=== PATIENT | female | born 1965 | race African-American/Black ===

== ENCOUNTER 2017-11-09 18:30 | Emergency (ER) | payer OTHER, SELFPAY ==
--- NOTE | 2017-11-09 21:24 | RAD ---
RIGHT KNEE 4 VIEWS: Date: 11/09/17 HISTORY: Pain. COMPARISON: 04/20/14. FINDINGS: Mild tricompartmental degenerative change. No joint effusion. No fracture. IMPRESSION: No fracture. No significant degenerative change. POS: [facility]
[2017-11-09] MEDS ORDERED: Ketorolac Tromethamine 30 MG/ML VIAL ONE (21:40)
== END 2017-11-09 21:57 | disposition home or self-care (01) ==
LOC: ERS 18:30
DX: M25.561 Pain in right knee (principal); K21.9 Gastro-esophageal reflux disease without esophagitis; E78.5 Hyperlipidemia, unspecified; E11.9 Type 2 diabetes mellitus without complications; I10 Essential (primary) hypertension; E03.9 Hypothyroidism, unspecified; F32.9 Major depressive disorder, single episode, unspecified
CPT/HCPCS: 96372; J1885

== ENCOUNTER 2018-05-16 08:24 | Observation (INO) | payer OTHER, SELFPAY ==
[2018-05-16 08:52] LABS: #Eosinphils 0.2 thou/uL (0.0-0.7); #Lymphocytes 2.4 thou/uL (1.20-3.40); #Monocytes 0.7 thou/uL (0.11-0.59); %Basophils 0.3 % (0.0-1.0); %Eosinophils 3.3 % (0.0-10.0); %Lymphocytes 38.4 % (21.0-51.0); %Monocytes 10.7 % (0.0-10.0); %Neutrophils 47.4 % (42.0-75.0); Mean Corpuscular HGB CONC 32.7 g/dL (32.0-36.0); Mean Corpuscular Hemoglobin 25.8 pg (27.0-31.0); Mean Corpuscular Volume 78.7 fL (78.0-98.0); Mean Platelet Volume 7.8 fL (7.4-10.4); Platelet Count 308 thou/uL (130-400); RBC Distribution Width 13.4 % (11.5-14.5); Red Blood Cell (RBC) Count 5.04 mill/uL (4.20-5.40); White Blood Cell (WBC) Count 6.3 thou/uL (4.8-10.8)
[2018-05-16] MEDS ORDERED: Nitroglycerin 0.4 MG TAB (25 Tab Bottle) ONE (08:57)
[2018-05-16 09:12] LABS: ALT (SGPT) Less than 7 U/L (8-55); AST (SGOT) 15 U/L (5-34); Alkaline Phosphatase 94 U/L (40-150); Anion Gap 18 mmol/L (10-20); BUN (Urea Nitrogen) 8 mg/dL (9.8-20.1); Bilirubin, Total 0.4 mg/dL (0.2-1.2); CK (CPK) 139 U/L (29-168); Calc. Creatinine Clearance 0 mL/min (70-130); Carbon Dioxide 19 mmol/L (22-29); Chloride 104 mmol/L (98-107); Estimated GFR-MDRD Greater than 90; Globulin 4.8 g/dL (2.4-3.5); Glucose 176 mg/dL (70-105); Potassium 3.6 mmol/L (3.5-5.1); Protein, Total 8.8 g/dL (6.0-8.3); Sodium 137 mmol/L (136-145)
[2018-05-16 09:26] LABS: CKMB 0.9 ng/mL (0-6.6); Troponin I Less than 0.010 ng/mL (< 0.028)
[2018-05-16] MEDS ORDERED: Nitroglycerin 0.4 MG TAB (25 Tab Bottle) PO PRN (09:56)
[2018-05-16] MEDS ORDERED: Benzonatate 100 MG CAP PO PRN (09:56)
[2018-05-16] MEDS ORDERED: Ondansetron PF 4 MG/2 ML Vial IVP PRN (09:56)
[2018-05-16] MEDS ORDERED: Diabetic Tussin 200 MG/10 ML UDCUP PO PRN (09:56)
[2018-05-16] MEDS ORDERED: Lorazepam 1 MG TAB PO PRN (09:56)
[2018-05-16] MEDS ORDERED: cloNIDine 0.1 MG TAB PO PRN (09:56)
[2018-05-16] MEDS ORDERED: Senokot 8.6 MG TAB PO PRN (09:56)
[2018-05-16] MEDS ORDERED: Loratadine 10 MG TAB PO PRN (09:56)
[2018-05-16] MEDS ORDERED: Nitroglycerin 0.4 MG TAB (25 Tab Bottle) SL PRN (09:56)
[2018-05-16] MEDS ORDERED: hydrALAZINE 20 MG/ML VIAL SLOW IVP PRN (09:56)
[2018-05-16] MEDS ORDERED: Bisacodyl 5 MG TAB PO PRN (09:56)
[2018-05-16] MEDS ORDERED: Dextrose 50% Abboject 50 ML SYRINGE SLOW IVP PRN (09:59)
[2018-05-16] MEDS ORDERED: Dextrose 5% in Water 1,000 ML IV PRN (09:59)
[2018-05-16] MEDS ORDERED: HumaLOG 300 UNITS/3 ML VIAL SC PRN ×2 (09:59)
[2018-05-16] MEDS ORDERED: Acetaminophen 325 MG TAB ONE (10:04)
--- NOTE | 2018-05-16 10:23 | RAD ---
CHEST 1 VIEW: Date: 05/16/18 HISTORY: Chest pain. COMPARISON: Chest radiograph dated 05/09/17. FINDINGS: Heart size upper limits of normal. There is right basilar air space opacity. No pneumothorax. No acut e osseous abnormality. IMPRESSION: Right lower lobe air space opacity concerning for developing infection. Atelectasis is also a possibi lity. POS: [facility]
[2018-05-16 10:24] LABS: Cardiac Risk 2.4 (Less than 4.5)
[2018-05-16 11:33] VITALS: BMI 44.7
[2018-05-16] MEDS: traMADol HCl 50 MG TAB PO PRN (17:41)
[2018-05-16 18:50] LABS: Troponin I Less than 0.010 ng/mL (< 0.028)
--- NOTE | 2018-05-16 19:16 | HP ---
DATE OF ADMISSION: 05/16/2018 PRIMARY CARE PHYSICIAN: [facility]. CHIEF COMPLAINT: Chest pain. HISTORY OF PRESENTING ILLNESS: Ms. Chambers is a 52-year-old obese female with past medical history of diabetes mellitus, hypertension, dyslipidemia, and GERD, who presented to the emergency room with the above-mentioned complaint. History is mainly obtained by the patient herself, electronic medical records have been reviewed. The patient had a workup done with Cardiolite stress test in 11/2016, w hich was normal. She presented to the ER with complaints of sharp chest pain. She does report that the pain woke her up last night when she was trying to go to the bathroom. She reports it as a very sharp pain, lastin g only a few seconds, then she was able to fall back asleep. This morning again when she had similar pain, but with less intensity, located in the left anterior chest. It was not associated with any s weating, nausea, palpitations or shortness of breath. She denies any recent illnesses. She reports that her chest pain was from left to the right side of the chest. She was not really checking her bl ood pressure or blood sugars at home, but is compliant with her medications. Upon presentation to the ER, she was hemodynamically stable with the blood pressure of 144/92, pulse of 96, saturating 100% on room air, respirations 21, temperature 97.4. Initial workup included a 12- lead EKG, which showed normal sinus rhythm with 84 beats per minute, similar to old EKG. Cardiac enz ymes were done and were negative. She was given nitroglycerin and aspirin, which helped with her jose n somewhat. Chest x-ray was done, which was unremarkable. She is now being admitted for further wor kup and rule out acute coronary syndrome. PAST MEDICAL HISTORY: 1. Hypertension. 2. Dyslipidemia. 3. Morbid obesity with a BMI of 44. 4. Diabetes mellitus. 5. Hypothyroidism. 6. GERD. PAST SURGICAL HISTORY: 1. Thyroidectomy. 2. Bladder cancer. 3. Removal of kidney stone. ALLERGIES: PENICILLIN. SOCIAL HISTORY: She is a nonsmoker, nondrinker. She is and has 4 children. FAMILY HISTORY: Her brother had history of cardiac disease requiring stents and pacemaker. CURRENT MEDICATIONS: As follows: Metformin 500 mg p.o. b.i.d., Prozac 40 mg daily, ranitidine 150 m g p.o. b.i.d., atorvastatin 40 mg daily, amlodipine 10 mg daily, levothyroxine 175 mcg daily, aspirin 81 mg daily. REVIEW OF SYSTEMS: A 12-point review of systems was done. It is negative except for those mentioned in the history and physical. LABORATORY DATA AND IMAGING: CBC is unremarkable. D-dimer less than 0.27. Serum chemistry shows bi carbonate of 19, blood sugar 176, troponin has been trended and it is less than 0.010. Lipid panel w ithin normal limit. BNP normal. Chest x-ray by my review is negative for any pleural effusion, irene a or infiltrate. A 12-lead EKG by my review shows normal sinus rhythm. It is negative for any acute ST or T-wave changes. PHYSICAL EXAMINATION: VITAL SIGNS: Most recent vital signs, temperature 97.7, pulse of 67, respirations 16, saturating 96% on room air, blood pressure 130/66. GENERAL: No acute distress, awake, alert, oriented x3, very pleasant. HEENT: Mucous membrane is moist and pink. No oropharyngeal exudate or erythema. Head is normocepha lic, atraumatic. Pupils are equal, reactive to light and accommodation. Extraocular movement intact . NECK: Supple without any lymphadenopathy, JVD or bruit. CHEST: Clear to auscultation without any wheezing, rales or rhonchi. She is tender to palpation in the anterior chest, left side and the right side as well. ABDOMEN: Obese, soft, nontender, nondistended with positive bowel sounds. EXTREMITIES: Free of any cyanosis, clubbing, or edema. NEUROLOGIC: Nonfocal. SKIN: Free of any rashes or bruises. I feel warm and dry to touch. PSYCHIATRIC: Normal affect. IMPRESSION AND PLAN: 1. Chest pain, most likely noncardiac as evidenced by reproducible tenderness and normal cardiac enz ymes and 12-lead EKG and cardiac stress test that was negative early last year. The patient does hav e a significant amount of risk factors, so we will go ahead and repeat the stress test for now and ad zo her on telemetry unit and continue to trend serial cardiac enzymes. Her aspirin dose will be inc reased to 325 mg for now and we will continue the Lipitor at this time. 2. Diabetes mellitus. Restart her home medication and add insulin sliding scale for further blood s ugar control. Accu-Cheks a.c. and at bedtime. 3. Hypertension, currently controlled. Resume her home medications of amlodipine at this time. 4. Dyslipidemia. Restart Lipitor. 5. Hypothyroidism. Restart Synthroid. 6. Add deep venous thrombosis and gastrointestinal prophylaxis. DISPOSITION: Ms. Chambers is currently being admitted to the hospital to rule out acute coronary syn drome. Further management will depend upon her clinical course.
[2018-05-16] MEDS: Famotidine 20 MG TAB PO SCH (20:48)
[2018-05-16] MEDS ORDERED: Atorvastatin Calcium 40 MG TAB PO SCH (21:00)
[2018-05-16 22:30] LABS: Troponin I Less than 0.010 ng/mL (< 0.028)
[2018-05-17] MEDS: traMADol HCl 50 MG TAB PO PRN ×2 (04:10→11:38)
[2018-05-17] MEDS ORDERED: Levothyroxine 175 MCG TAB PO SCH (06:00)
[2018-05-17] MEDS ORDERED: metFORMIN 500 MG TAB PO SCH (08:00)
[2018-05-17] MEDS ORDERED: Aspirin 325 MG TAB PO SCH ×2 (08:00→09:00)
[2018-05-17 08:19] VITALS: TEMP 97.6
[2018-05-17] MEDS ORDERED: FLUoxetine HCl 20 MG CAP PO SCH (09:00)
[2018-05-17] MEDS ORDERED: Aspirin 81 mg Enteric Coated Tablet PO SCH (09:00)
[2018-05-17] MEDS ORDERED: Amlodipine 10 MG TAB PO SCH (09:00)
[2018-05-17] MEDS: Famotidine 20 MG TAB PO SCH (10:38)
[2018-05-17 10:41] VITALS: BP 132/60
--- NOTE | 2018-05-17 12:23 | NM ---
NUCLEAR MEDICINE CARDIAC MYOCARDIAL PERFUSION SPECT EJECTION FRACTION STUDY WALL MOTION CINE: Date: 05/17/18 HISTORY: 52-year-old female with Type 2 diabetes mellitus, hypertension, hyperlipidemia, and family history of coronary artery disease, presents with chest pain. TECHNIQUE: Number of days: 2 Rest study: Tc99m sestamibi (Cardiolite) dose: 30.8 mCi Pharmacologic stress: adenosine dose: 72.2 mg Stress study: Tc99m sestamibi (Cardiolite) dose: 30.0 mCi FINDINGS: CARDIAC (MYOCARDIAL PERFUSION) SPECT There are no reversible myocardial perfusion defects. EJECTION FRACTION STUDY EF = 54% WALL MOTION CINE No gross focal wall motion abnormality identified. IMPRESSION: No evidence of reversible ischemia. MARY Daniel POS: [facility]
--- NOTE | 2018-05-17 13:17 | DIS ---
DATE OF ADMISSION: 05/16/2018 DATE OF DISCHARGE: 05/17/2018 CONDITION AT THE TIME OF DISCHARGE: Stable and improved. DISCHARGE DIAGNOSES: 1. Chest pain, atypical, noncardiac, acute coronary syndrome rule out. 2. Hypertension. 3. Dyslipidemia. 4. Morbid obesity. 5. Diabetes mellitus. 6. Hypothyroidism. 7. Gastroesophageal reflux disease. DISCHARGE DISPOSITION: Home. PRIMARY CARE PHYSICIAN: [facility]. DISCHARGE MEDICATIONS: Remain the same as admission medication. Please see admission history and ph ysical for further detail. No changes were made. PROCEDURES DONE IN HOSPITAL: Nuclear medicine stress test, which is unremarkable. There was no evid ence of ischemia or infarction. HISTORY OF PRESENT ILLNESS: Ms. Chambers is a 52-year-old female with history of diabetes, hypertens ion, dyslipidemia, and family history of coronary artery disease who presented to the emergency room with complaints of chest pain. She was admitted for ACS rule out. Cardiac enzymes and EKG were unre markable at the time of presentation. Chest x-ray was within normal limit. She was hemodynamically stable. Please see admission history and physical for further detail. HOSPITAL COURSE: The patient remained asymptomatic throughout the rest of her hospitalization and di d not have any answer and had stable vital signs. Serial cardiac enzymes were trended and were negat kane. Troponin less than 0.010. A lipid panel was checked and was within normal limits. She was res tarted on her home medications except that for the time being, aspirin was increased to 325. She underwent a nuclear medicine stress test which was negative for any reversible or fixed defect. EF estimated at 53%. It was done in 2 steps because of her obesity. At this time, she is being discharged from the hospital as ACS has been ruled out. Chest pain is non cardiac and resolved with some tramadol that was given in the hospital. She was seen and examined prior to discharge. PHYSICAL EXAMINATION: VITAL SIGNS: This morning, temperature 97.2, pulse of 70, respirations 15, saturating 98% on room ai r, blood pressure 132/60. GENERAL: No acute distress, awake, alert, oriented x3. CHEST: Clear to auscultation without any wheezing, rales or rhonchi. Rhythm is regular without any murmur, rubs or gallops. She is instructed to follow with primary care physician in 7-10 days.
--- NOTE | 2018-05-29 09:41 | STRESS ---
Acquisition Time: 2018-05-17 08:20:16 Total Exercise Time: 00:04:00 Test Indications: CHEST PAIN Medications: Protocol: ADENOSINE Max HR: 105 BPM 62% of Pred: 169 BPM Max BP: 152/058 mmHG Max Work Load: 1.0 METS RESTING ECG: NORMAL SINUS RHYTHM WITH LEFT AXIS DEVIATION AND RARE PACs SYMPTOMS: DYSPNEA ON EXERTION NORMAL BP RESPONSE ECTOPY: NONE ECG STRESS: NO SIGNIFICANT CHANGES INTERPRETATION: AWAIT NUCLEAR IMAGES FOR DEFINITIVE DIAGNOSIS Confirmed by MIRZA SLAUGHTER ([id number]), television news video editor JULITA DURAND ([id number]) on 05/29/2018 9:41:10 AM Referred By: MD Zana ANGULO Confirmed By:MIRZA SLAUGHTER
--- NOTE | 2018-05-30 12:02 | EKG ---
Test Reason : Blood Pressure : / mmHG Vent. Rate : 084 BPM Atrial Rate : 084 BPM P-R Int : 148 ms QRS Dur : 094 ms QT Int : 404 ms P-R-T Axes : 043 -33 049 degrees QTc Int : 477 ms Normal sinus rhythm Left axis deviation Voltage criteria for left ventricular hypertrophy Abnormal ECG Confirmed by CARLY VILLAREAL ([id number]), editor city RENE HOGUE ([id number]) on 05/30/2018 12:02:17 PM Referred By: Confirmed By:CARLY VILLAREAL
== END 2018-05-17 13:47 | disposition home or self-care (01) ==
LOC: ERS 08:24 → 2SW 09:54
PROVIDERS: ADMIT Internal Medicine; ATTEND Internal Medicine
DX: R07.89 Other chest pain (principal); I10 Essential (primary) hypertension; E78.5 Hyperlipidemia, unspecified; E66.01 Morbid (severe) obesity due to excess calories; E11.9 Type 2 diabetes mellitus without complications; E89.0 Postprocedural hypothyroidism; K21.9 Gastro-esophageal reflux disease without esophagitis; Z79.899 Other long term (current) drug therapy; Z79.82 Long term (current) use of aspirin; Z68.41 Body mass index [BMI] 40.0-44.9, adult; Z88.0 Allergy status to penicillin; Z79.84 Long term (current) use of oral hypoglycemic drugs
CPT/HCPCS: 36415; 36416; 71045; 78452; 80053; 80061; 82553; 83880; 84484; 85025; 85379; 90471; 90732; 93005; 93017; 94760; A9500; G0009; G0378; J0153

== ENCOUNTER 2018-08-08 15:19 | Emergency (ER) | payer SELFPAY ==
[~2018-08-08 15:19] MED LIST: ISOVUE-370 76%-LOCM 1 ML ONE
[2018-08-08 16:12] LABS: #Basophils 0.1 thou/uL (0.0-0.2); #Eosinphils 0.1 thou/uL (0.0-0.7); #Lymphocytes 1.5 thou/uL (1.20-3.40); #Monocytes 0.8 thou/uL (0.11-0.59); #Neutrophils 4.2 thou/uL (1.40-6.50); %Basophils 1.6 % (0.0-1.0); %Eosinophils 1.2 % (0.0-10.0); %Lymphocytes 21.9 % (21.0-51.0); %Monocytes 12.1 % (0.0-10.0); %Neutrophils 63.1 % (42.0-75.0); Hemoglobin 12.2 g/dL (12.0-16.0); Mean Corpuscular HGB CONC 32.2 g/dL (32.0-36.0); Mean Corpuscular Hemoglobin 25.3 pg (27.0-31.0); Mean Corpuscular Volume 78.7 fL (78.0-98.0); Mean Platelet Volume 8.6 fL (7.4-10.4); Platelet Count 312 thou/uL (130-400); RBC Distribution Width 13.4 % (11.5-14.5); Red Blood Cell (RBC) Count 4.83 mill/uL (4.20-5.40); White Blood Cell (WBC) Count 6.7 thou/uL (4.8-10.8)
[2018-08-08 16:31] LABS: Anion Gap 13 mmol/L (10-20); Bilirubin, Total 0.4 mg/dL (0.2-1.2); Calcium 9.1 mg/dL (7.8-10.44); Carbon Dioxide 23 mmol/L (22-29); Chloride 107 mmol/L (98-107); Potassium 4.1 mmol/L (3.5-5.1); Protein, Total 8.2 g/dL (6.0-8.3); Sodium 139 mmol/L (136-145)
[2018-08-08 16:32] LABS: AST (SGOT) 15 U/L (5-34)
--- NOTE | 2018-08-08 16:42 | CT ---
CT ABDOMEN AND PELVIS WITH IV CONTRAST 08/08/18 HISTORY: Abdomen pain and back pain. COMPARISON: 01/26/16. FINDINGS: The lung bases are clear. Gallbladder is surgically absent. The liver, spleen, kidneys, adrenal gland s, and pancreas have a normal CT appearance. No enlarged lymph nodes or free fluid. Urinary bladder i s decompressed. Lack of oral contrast limits evaluation of the bowel. No evidence of obstruction or inflammation. IMPRESSION: No significant abnormalities are demonstrated. POS: [facility]
[2018-08-08] MEDS ORDERED: Dicyclomine 20 MG TAB ONE (16:47)
[2018-08-08] MEDS ORDERED: Ketorolac Tromethamine 30 MG/ML VIAL ONE (16:47)
[2018-08-08 16:50] LABS: ALT (SGPT) Less than 7 U/L (8-55); Albumin 3.8 g/dL (3.5-5.0); Alkaline Phosphatase 85 U/L (40-150); BUN (Urea Nitrogen) 9 mg/dL (9.8-20.1); Calc. Creatinine Clearance 0 mL/min (70-130); Estimated GFR-MDRD Greater than 90; Globulin 4.7 g/dL (2.4-3.5); Glucose 112 mg/dL (70-105)
[2018-08-08] MEDS ORDERED: Methocarbamol 500 MG TAB PO SCH (17:00)
[2018-08-08] MEDS ORDERED: Metoclopramide HCl 10 MG/2 ML VIAL ONE (18:01)
[2018-08-08] MEDS ORDERED: diphenhydrAMINE 25 MG CAP ONE ×2 (18:01→18:05)
[2018-08-08 18:04] LABS: Bilirubin Negative (Negative); Blood, Urine Negative (Negative); Clarity CLEAR (Clear); Glucose, Urine (Dipstick) Negative (Negative); Leukocyte Negative (Negative); Nitrite Negative (Negative); Protein, Urine (Dipstick) Negative (Neg-Trace)
[2018-08-08 18:07] LABS: Specific Gravity, Urine Greater than 1.060 (1.002-1.036)
[2018-08-08] MEDS ORDERED: traMADol HCl 50 MG TAB ONE (19:25)
--- NOTE | 2018-08-24 15:48 | EKG ---
Test Reason : Blood Pressure : / mmHG Vent. Rate : 089 BPM Atrial Rate : 089 BPM P-R Int : 142 ms QRS Dur : 086 ms QT Int : 388 ms P-R-T Axes : 041 -31 038 degrees QTc Int : 472 ms Sinus rhythm with Premature atrial complexes Left axis deviation Voltage criteria for left ventricular hypertrophy Abnormal ECG Confirmed by CARLY VILLAREAL ([id number]), graphic editor MERRILL LORA ([id number]) on 08/24/2018 3:48:33 PM Referred By: Confirmed By:CARLY VILLAREAL
== END 2018-08-08 19:31 | disposition home or self-care (01) ==
LOC: ERS 15:19
DX: M54.6 Pain in thoracic spine (principal); K21.9 Gastro-esophageal reflux disease without esophagitis; E78.5 Hyperlipidemia, unspecified; E11.9 Type 2 diabetes mellitus without complications; I10 Essential (primary) hypertension; E03.9 Hypothyroidism, unspecified; F32.9 Major depressive disorder, single episode, unspecified; Z87.442 Personal history of urinary calculi; Z79.82 Long term (current) use of aspirin; Z79.899 Other long term (current) drug therapy
CPT/HCPCS: 36415; 74177; 80053; 81003; 85025; 93005; 96361; 96365; 96375; J1885; J2765

== ENCOUNTER 2018-11-04 19:10 | Emergency (ER) | payer SELFPAY ==
--- NOTE | 2018-11-04 21:37 | RAD ---
FOUR VIEWS OF THE RIGHT KNEE: 11/04/18 COMPARISON: 11/09/17. HISTORY: Fall, trauma, pain. FINDINGS: There is moderate degenerative change involving the medial compartment with joint space narrowing and osteophyte formation. There is no displaced fracture or evidence of dislocation. There is patellofem oral joint space narrowing and there is enthesophyte formation at the insertion of the quadriceps ten don. IMPRESSION: Degenerative joint disease with no displaced fracture or dislocation seen. POS: [facility]
== END 2018-11-04 22:01 | disposition home or self-care (01) ==
LOC: ERS 19:10
DX: S80.01XA Contusion of right knee, initial encounter (principal); K21.9 Gastro-esophageal reflux disease without esophagitis; E78.5 Hyperlipidemia, unspecified; E11.9 Type 2 diabetes mellitus without complications; E03.9 Hypothyroidism, unspecified; F41.9 Anxiety disorder, unspecified; F32.9 Major depressive disorder, single episode, unspecified; Z79.82 Long term (current) use of aspirin; Z79.891 Long term (current) use of opiate analgesic; Z79.899 Other long term (current) drug therapy; W01.0XXA Fall on same level from slipping, tripping and stumbling without subsequent striking against object, initial encounter

== ENCOUNTER 2019-04-01 18:28 | Emergency (ER) | payer SELFPAY ==
[2019-04-01] MEDS ORDERED: Meclizine HCl 25 MG TAB ONE (19:14)
[2019-04-01 19:27] LABS: #Basophils 0.1 thou/uL (0.0-0.2); #Eosinphils 0.2 thou/uL (0.0-0.7); #Lymphocytes 2.9 thou/uL (1.20-3.40); #Monocytes 0.8 thou/uL (0.11-0.59); #Neutrophils 5.1 thou/uL (1.40-6.50); %Basophils 0.9 % (0.0-1.0); %Eosinophils 1.8 % (0.0-10.0); %Monocytes 8.4 % (0.0-10.0); %Neutrophils 56.9 % (42.0-75.0); Hemoglobin 12.5 g/dL (12.0-16.0); Mean Corpuscular HGB CONC 32.5 g/dL (32.0-36.0); Mean Corpuscular Hemoglobin 25.5 pg (27.0-31.0); Mean Corpuscular Volume 78.5 fL (78.0-98.0); Mean Platelet Volume 8.7 fL (7.4-10.4); Platelet Count 291 thou/uL (130-400); RBC Distribution Width 13.4 % (11.5-14.5); Red Blood Cell (RBC) Count 4.89 mill/uL (4.20-5.40)
[2019-04-01 19:48] LABS: ALT (SGPT) Less than 7 U/L (8-55); AST (SGOT) 13 U/L (5-34); Albumin 3.9 g/dL (3.5-5.0); Alkaline Phosphatase 94 U/L (40-150); Anion Gap 14 mmol/L (10-20); BUN (Urea Nitrogen) 9 mg/dL (9.8-20.1); Bilirubin, Total 0.4 mg/dL (0.2-1.2); Calc. Creatinine Clearance 0 mL/min (70-130); Calcium 8.9 mg/dL (7.8-10.44); Carbon Dioxide 23 mmol/L (22-29); Chloride 105 mmol/L (98-107); Estimated GFR-MDRD 87; Globulin 4.4 g/dL (2.4-3.5); Glucose 164 mg/dL (70-105); Potassium 3.6 mmol/L (3.5-5.1); Protein, Total 8.3 g/dL (6.0-8.3); Sodium 138 mmol/L (136-145)
[2019-04-01 19:51] LABS: Bilirubin Negative (Negative); Blood, Urine Negative (Negative); Clarity Clear (Clear); Glucose, Urine (Dipstick) Negative (Negative); Leukocyte Small (Negative); Nitrite Negative (Negative); Protein, Urine (Dipstick) Trace mg/dL (Neg-Trace); Urobilinogen 0.2 mg/dL (0.2-1.0)
[2019-04-01 20:04] LABS: Bacteria/HPF 2+ HPF (None Seen); Hyaline Casts/LPF NONE SEEN LPF (0-3 Hyaline); RBC/HPF None Seen HPF (0-3); Squamous Epithelial 0-3 HPF (0-3)
== END 2019-04-01 20:40 | disposition home or self-care (01) ==
LOC: ERS 18:28
DX: N39.0 Urinary tract infection, site not specified (principal); R42 Dizziness and giddiness; E11.9 Type 2 diabetes mellitus without complications; I10 Essential (primary) hypertension; E78.5 Hyperlipidemia, unspecified; E03.9 Hypothyroidism, unspecified; F41.9 Anxiety disorder, unspecified; K21.9 Gastro-esophageal reflux disease without esophagitis; F32.9 Major depressive disorder, single episode, unspecified; Z79.82 Long term (current) use of aspirin; Z79.899 Other long term (current) drug therapy
CPT/HCPCS: 36415; 36416; 80053; 81003; 81015; 84484; 85025; 87086; 93005; J8499

== ENCOUNTER 2021-10-09 09:41 | Emergency (ER) | payer OTHER ==
[2021-10-09 10:32] LABS: #Basophils 0.1 thou/uL (0.0-0.2); #Eosinphils 0.1 thou/uL (0.0-0.7); #Lymphocytes 2.9 thou/uL (1.20-3.40); #Monocytes 0.7 thou/uL (0.11-0.59); #Neutrophils 3.3 thou/uL (1.40-6.50); %Basophils 0.9 % (0.0-1.0); %Eosinophils 1.8 % (0.0-10.0); %Lymphocytes 41.1 % (21.0-51.0); %Monocytes 10.2 % (0.0-10.0); Hemoglobin 13.3 g/dL (12.0-16.0); Mean Corpuscular HGB CONC 30.7 g/dL (32.0-36.0); Mean Corpuscular Hemoglobin 24.5 pg (27.0-31.0); Mean Corpuscular Volume 79.7 fL (78.0-98.0); Mean Platelet Volume 8.3 fL (7.4-10.4); Platelet Count 287 thou/uL (130-400); RBC Distribution Width 12.8 % (11.5-14.5); Red Blood Cell (RBC) Count 5.44 mill/uL (4.20-5.40); White Blood Cell (WBC) Count 7.1 thou/uL (4.8-10.8)
[2021-10-09 10:54] LABS: ALT (SGPT) 7 U/L (8-55); AST (SGOT) 25 U/L (5-34); Albumin 3.5 g/dL (3.5-5.0); Alkaline Phosphatase 85 U/L (40-110); Anion Gap 11 mmol/L (10-20); BUN (Urea Nitrogen) 8 mg/dL (9.8-20.1); Bilirubin, Total 0.4 mg/dL (0.2-1.2); Calc. Creatinine Clearance 0 mL/min (70-130); Calcium 9.7 mg/dL (7.8-10.44); Carbon Dioxide 26 mmol/L (22-29); Chloride 104 mmol/L (98-107); Globulin 4.8 g/dL (2.4-3.5); Glucose 133 mg/dL (70-105); Potassium 4.1 mmol/L (3.5-5.1); Protein, Total 8.3 g/dL (6.0-8.3); Sodium 137 mmol/L (136-145)
[2021-10-09 13:24] LABS: Troponin I Less than 0.010 ng/mL (< 0.028)
[2021-10-09] MEDS ORDERED: Acetaminophen 500 MG TAB ONE (14:12)
[2021-10-09] MEDS ORDERED: Ketorolac Tromethamine 30 MG/ML VIAL ONE (14:12)
== END 2021-10-09 15:42 | disposition home or self-care (01) ==
LOC: ERS 09:41
DX: R07.89 Other chest pain (principal); K21.9 Gastro-esophageal reflux disease without esophagitis; E78.5 Hyperlipidemia, unspecified; E11.9 Type 2 diabetes mellitus without complications; I10 Essential (primary) hypertension; E03.9 Hypothyroidism, unspecified; Z79.899 Other long term (current) drug therapy; Z79.82 Long term (current) use of aspirin; Z79.84 Long term (current) use of oral hypoglycemic drugs
CPT/HCPCS: 36415; 71045; 80053; 84484; 85025; 93005; 96372; J1885